=== PATIENT | male | born 1985 | race African-American/Black ===

== ENCOUNTER 2016-03-27 22:49 | Emergency (ER) | payer OTHER ==
[~2016-03-27] VITALS: Ht 175.3 cm; Wt 77.3 kg
[~2016-03-27 22:49] MED LIST: NOCURR
[2016-03-27] MEDS ORDERED: CEPHALEXIN MONOHYDRATE 500 MG CAPSULE PO ONE (23:15)
[2016-03-27] MEDS ORDERED: PERTUSS(ACELL),DIPH,TET VAC/PF 0.5 ML VIAL IM ONE (23:15)
[2016-03-27] MEDS ORDERED: IBUPROFEN 600 MG TABLET PO ONE (23:45)
[2016-03-28 01:03] VITALS: BP 141/79
== END 2016-03-28 01:05 | disposition home or self-care (01) ==
LOC: EMS 22:51
DX: S81.032A Puncture wound without foreign body, left knee, initial encounter (principal); F17.210 Nicotine dependence, cigarettes, uncomplicated; X58.XXXA Exposure to other specified factors, initial encounter; Y93.89 Activity, other specified; Y92.89 Other specified places as the place of occurrence of the external cause; Y99.8 Other external cause status
CPT/HCPCS: 90471; 90715; 99284

== ENCOUNTER 2016-10-13 18:18 | Emergency (ER) | payer OTHER ==
[~2016-10-13] VITALS: Ht 177.8 cm; Wt 72.7 kg
[2016-10-13 19:06] VITALS: BP 140/89
== END 2016-10-13 19:46 | disposition home or self-care (01) ==
LOC: EMS 18:19
DX: F10.20 Alcohol dependence, uncomplicated (principal); F14.10 Cocaine abuse, uncomplicated; F17.210 Nicotine dependence, cigarettes, uncomplicated; F19.10 Other psychoactive substance abuse, uncomplicated
CPT/HCPCS: 99281

== ENCOUNTER 2019-05-16 19:32 | Emergency (ER) | payer SELFPAY ==
[~2019-05-16] VITALS: Ht 177.8 cm; Wt 77.3 kg
[2019-05-16 21:21] VITALS: BP 141/109
== END 2019-05-16 22:31 | disposition left against medical advice (07) ==
LOC: EMS 19:33
DX: R05 Cough (principal); Z53.21 Procedure and treatment not carried out due to patient leaving prior to being seen by health care provider